=== PATIENT | male | born 1950 | race African-American/Black ===

== ENCOUNTER 2017-03-13 13:40 | Emergency (ER) | payer OTHER ==
[2017-03-13] MEDS ORDERED: ONDANSETRON HCL INJ/PF 4 MG/2 ML SDV IV ONE (13:47)
--- NOTE | 2017-03-13 13:52 | ER Document Report ---
ED General - General Stated Complaint: SYNCOPE Time Seen by Provider: 03/13/17 13:47 Mode of Arrival: Medic Information source: Patient Notes: This 66-year-old man with a history of hypertension, diabetes and lower disc disease is brought in by EMS after an episode of nausea, vomiting, syncope while shopping. Patient denies any chest pain or shortness of breath. He states he has been having some neck pain with movement for the past 4 days and has not been drinking that much fluids because of it. He states he did not eat much today and went out shopping and it was hot outside. He states he started to feel sweaty and nauseous at the counter at the store. He bent over vomited and states he fainted. Currently, the patient states she is feeling better. TRAVEL OUTSIDE OF THE [place] IN LAST 30 DAYS: No - HPI Onset: Just prior to arrival Onset/Duration: Sudden Quality of pain: No pain Severity: None Pain Level: Denies Associated symptoms: Other - On review of systems, the patient has been experiencing posterior neck pain for the past several days. denies: Chest pain , Fever, Shortness of breath Exacerbated by: Denies Relieved by: Denies Similar symptoms previously: No Recently seen / treated by doctor: No - Related Data Allergies/Adverse Reactions: No Known Allergies Allergy (Unverified 12/07/13 09:11) Past Medical History - General Information source: Patient - Social History Smoking Status: Never Smoker Cigarette use (# per day): No Chew tobacco use (# tins/day): No Frequency of alcohol use: None Drug Abuse: None Lives with: Family Family History: Reviewed & Not Pertinent Patient has suicidal ideation: No Patient has homicidal ideation: No - Past Medical History Cardiac Medical History: Reports: Hx Hypercholesterolemia, Hx Hypertension Pulmonary Medical History: Reports: None EENT Medical History: Reports: None Neurological Medical History: Reports: None Endocrine Medical History: Reports: Hx Diabetes Mellitus Type 2 Renal/ Medical History: Reports: None Malignancy Medical History: Reports None GI Medical History: Reports: None Musculoskeltal Medical History: Reports Hx Arthritis Skin Medical History: Reports None Psychiatric Medical History: Reports: None Traumatic Medical History: Reports: None Past Surgical History: Reports: Other - Lumbar spine surgery - Immunizations Hx Diphtheria, Pertussis, Tetanus Vaccination: No Review of Systems - Review of Systems Constitutional: denies: Chills, Fever EENT: No symptoms reported Cardiovascular: See HPI Respiratory: No symptoms reported Gastrointestinal: See HPI Genitourinary: No symptoms reported Male Genitourinary: No symptoms reported Musculoskeletal: No symptoms reported Skin: No symptoms reported Hematologic/Lymphatic: No symptoms reported Neurological/Psychological: No symptoms reported Physical Exam - Vital signs Vitals: Temp Pulse Resp BP Pulse Ox 98.2 F 65 16 156/93 H 100 03/13/17 13:45 03/13/17 13:45 03/13/17 13:45 03/13/17 13:45 03/13/17 13:45 Notes: Physical exam: GENERAL: 66-year-old man, alert and oriented 3, no acute distress HEAD: Atraumatic, normocephalic. EYES: Pupils equal round and reactive to light, extraocular movements intact, sclera anicteric, conjunctiva are normal. ENT: TMs normal, nares patent, oropharynx clear without exudates. Moist mucous membranes. NECK: Normal range of motion, supple without lymphadenopathy or JVD. LUNGS: Breath sounds clear to auscultation bilaterally and equal. No wheezes rales or rhonchi. HEART: Regular rate and rhythm without murmurs, rubs or gallops. ABDOMEN: Soft, normoactive bowel sounds. No tenderness to palpation. No guarding, no rebound. No masses appreciated. EXTREMITIES: Normal range of motion, no pitting or edema. No clubbing or cyanosis. NEUROLOGICAL: Cranial nerves II through XII grossly intact. Normal speech, normal gait. PSYCH: Normal mood, normal affect. SKIN: Warm, Dry, normal turgor, no rashes or lesions noted. Course - Vital Signs Vital signs: Temp Pulse Resp BP Pulse Ox 98.0 F 65 20 155/89 H 100 03/13/17 15:58 03/13/17 13:45 03/13/17 15:05 03/13/17 15:05 03/13/17 15:05 - Laboratory Result Diagrams: 03/13/17 13:55 03/13/17 13:55 Laboratory results interpreted by me: 03/13/17 13:55 Est GFR (Non-Af Amer) 59 L Glucose 174 H - Diagnostic Test Radiology reviewed: Image reviewed, Reports reviewed - No infiltrates - EKG Interpretation by Me Rate: Normal Rhythm: NSR - He shows normal sinus rhythm with a ventricular rate of 59, no acute ST-T wave changes Discharge - Discharge Clinical Impression: Heat exhaustion, Neck pain Condition: Stable Disposition: HOME, SELF-CARE Additional Instructions: Recommendations: As we discussed, rest, drink plenty of fluids. Take the Zofran if you have any nausea: 1 tablet every 4-6 hours per As far as for the neck pain: Take ibuprofen 400 mg every 6 hours for the next few days. Do not take it on an empty stomach Can try heating pads to the neck Follow-up with your doctor this week Recommend you have an outpatient MRI of the cervical spine and evaluation by a spine doctor See your primary care physician: Bring a copy of today's labs and x-ray reports with you. Referrals: NILAM KERR SEARCHLIGHT OPERATOR [Primary Care Provider] - Follow up tomorrow
[2017-03-13] MEDS: NORMAL SALINE 1000 ML 1,000 ML IV PRN ×2 (14:05→14:06)
[2017-03-13 14:13] LABS: ABSOLUTE EOSINOPHILS # (AUTO) 0.2 10^3/uL (0.0-0.6); ABSOLUTE LYMPHOCYTES (AUTO) 2.2 10^3/uL (0.5-4.7); ABSOLUTE NEUT (AUTO) 6.8 10^3/uL (1.7-8.2); BASOPHILS % (AUTO) 0.4 % (0-2); EOSINOPHILS % (AUTO) 1.6 % (0-6); HEMOGLOBIN 14.2 g/dL (13.5-17.0); HGB HCT DIFFERENCE -0.4; LYMPHOCYTES % (AUTO) 21.5 % (13-45); MEAN CORPUSCULAR HEMOGLOBIN 28.3 pg (27.0-33.4); MEAN CORPUSCULAR HGB CONC 33.1 g/dL (32.0-36.0); MEAN CORPUSCULAR VOLUME 86 fl (80-97); MONOCYTES % (AUTO) 9.5 % (3-13); RED BLOOD COUNT 5.02 10^6/uL (4.35-5.55); WHITE BLOOD COUNT 10.2 10^3/uL (4.0-10.5)
--- NOTE | 2017-03-13 14:18 | RADIOLOGY REPORT (SQ) ---
EXAM DESCRIPTION: CHEST SINGLE VIEW COMPLETED DATE/TIME: 03/13/2017 2:05 pm REASON FOR STUDY: vomiting COMPARISON: December 2013 EXAM PARAMETERS: NUMBER OF VIEWS: One view. TECHNIQUE: Single frontal radiographic view of the chest acquired. RADIATION DOSE: NA LIMITATIONS: None. FINDINGS: LUNGS AND PLEURA: No opacities, masses or pneumothorax. No pleural effusion. MEDIASTINUM AND HILAR STRUCTURES: No masses. Contour normal. HEART AND VASCULAR STRUCTURES: Heart normal in size. Normal vasculature. BONES: No acute findings. HARDWARE: None in the chest. OTHER: No other significant finding. IMPRESSION: NO ACUTE RADIOGRAPHIC FINDING IN THE CHEST. TECHNICAL DOCUMENTATION: JOB ID: [id number]
[2017-03-13 14:30] LABS: ALANINE AMINOTRANSFERASE 22 U/L (21-72); ALBUMIN 4.1 g/dL (3.5-5.0); ALKALINE PHOSPHATASE 90 U/L (38-126); ANION GAP 13 (5-19); ASPARTATE AMINO TRANSFERASE 17 U/L (17-59); BILIRUBIN,DIRECT 0.2 mg/dL (0.0-0.4); BILIRUBIN,TOTAL 1.3 mg/dL (0.2-1.3); BLOOD UREA NITROGEN 14 mg/dL (7-20); CALCIUM 9.6 mg/dL (8.4-10.2); CARBON DIOXIDE 24 mmol/L (22-30); CHLORIDE 103 mmol/L (98-107); CREATINE KINASE 141 U/L (55-170); CREATININE RESULT 1.24 mg/dL (0.52-1.25); GLUCOSE 174 mg/dL (75-110); POTASSIUM 4.1 mmol/L (3.6-5.0); SODIUM 139.7 mmol/L (137-145); TOTAL PROTEIN 7.8 g/dL (6.3-8.2)
[2017-03-13 14:42] LABS: CREATINE KINASE MB 0.62 ng/mL (<4.55)
[2017-03-13 14:43] LABS: TROPONIN I < 0.012 ng/mL
[2017-03-13] MEDS ORDERED: KETOROLAC TROMETHAMINE INJ/PF 30 MG/1 ML SDV IV ONE (15:10)
--- NOTE | 2017-03-13 15:30 | RADIOLOGY REPORT (SQ) ---
EXAM DESCRIPTION: CT CERVICAL SPINE WITHOUT COMPLETED DATE/TIME: 03/13/2017 2:41 pm REASON FOR STUDY: neck pain COMPARISON: None. TECHNIQUE: Axial images acquired through the cervical spine without intravenous contrast. Images re viewed with lung, soft tissue and bone windows. Reconstructed coronal and sagittal MPR images review ed. Images stored on PACS. All CT scanners at this facility use dose modulation, iterative reconstruction, and/or weight based d osing when appropriate to reduce radiation dose to as low as reasonably achievable (ALARA). [facility]: Dose Right [facility]: CareDose [facility]: Dose Right [facility]: Teradose 4D [facility]: [employer] RADIATION DOSE: Up-to-date CT equipment and radiation dose reduction techniques were employed. CTDIv ol: 22.8 mGy. DLP: 497 mGy-cm. mGy. LIMITATIONS: None. FINDINGS: ALIGNMENT: Anatomic. MINERALIZATION: Normal. VERTEBRAL BODIES: No fractures or dislocation. DISCS: Multilevel disc space narrowing with osteophytes. FACETS, LATERAL MASSES, POSTERIOR ELEMENTS: Facet arthropathy. No fractures. No dislocation. No ac yadiel findings. HARDWARE: None in the spine. VISUALIZED RIBS: No fractures. LUNG APICES AND SOFT TISSUES: No significant or acute findings. OTHER: No other significant finding. IMPRESSION: CHRONIC DEGENERATIVE CHANGES. NO ACUTE FINDINGS. TECHNICAL DOCUMENTATION: JOB ID: [id number] Quality ID # [id number]: Final reports with documentation of one or more dose reduction techniques (e.g., Au tomated exposure control, adjustment of the mA and/or kV according to patient size, use of iterative reconstruction technique) 2010 [employer]- All Rights Reserved
[2017-03-13 16:05] VITALS: BP 151/99
[2017-03-13] MEDS ORDERED: ONDANSETRON ODT 4 MG TAB (6 TAB/DSPK) PO PRN (16:05)
--- NOTE | 2017-03-13 18:01 | EKG REPORT ---
SEVERITY:- BORDERLINE ECG - SINUS RHYTHM BORDERLINE T ABNORMALITIES, INFERIOR LEADS : Confirmed by: Bhavik Little MD 13-Mar-2017 17:59:50
== END 2017-03-13 16:10 | disposition home or self-care (01) ==
LOC: ER 13:40
DX: T67.5XXA Heat exhaustion, unspecified, initial encounter (principal); R55 Syncope and collapse; R11.2 Nausea with vomiting, unspecified; X30.XXXA Exposure to excessive natural heat, initial encounter; Y93.89 Activity, other specified; M54.2 Cervicalgia; I10 Essential (primary) hypertension; E11.9 Type 2 diabetes mellitus without complications
CPT/HCPCS: 93005; 99285; 96361; 96374; 96375; 36415; 82553; 82550; 85025; 80053; 84484; 71010; 72125; 93010; J1885; J2405; J7030

== ENCOUNTER 2017-11-21 07:02 | Inpatient (IN) | payer MEDICARE, OTHER ==
[2017-11-21] MEDS ORDERED: NORMAL SALINE 1000 ML 1,000 ML IV ONE ×2 (07:12→09:55)
[2017-11-21 07:22] LABS: ABSOLUTE EOSINOPHILS # (AUTO) 0.4 10^3/uL (0.0-0.6); ABSOLUTE LYMPHOCYTES (AUTO) 3.5 10^3/uL (0.5-4.7); ABSOLUTE MONOCYTES (AUTO) 0.7 10^3/uL (0.1-1.4); ABSOLUTE NEUT (AUTO) 3.3 10^3/uL (1.7-8.2); BASOPHILS % (AUTO) 0.4 % (0-2); EOSINOPHILS % (AUTO) 4.7 % (0-6); HEMATOCRIT 37.8 % (37.9-51.0); HEMOGLOBIN 12.6 g/dL (13.5-17.0); LYMPHOCYTES % (AUTO) 43.7 % (13-45); MEAN CORPUSCULAR HEMOGLOBIN 28.3 pg (27.0-33.4); MEAN CORPUSCULAR HGB CONC 33.3 g/dL (32.0-36.0); MEAN CORPUSCULAR VOLUME 85 fl (80-97); MONOCYTES % (AUTO) 9.3 % (3-13); PLATELET COUNT 205 10^3/uL (150-450); RED BLOOD COUNT 4.45 10^6/uL (4.35-5.55); RED CELL DISTRIBUTION WIDTH 13.4 % (11.5-14.0); SEGMENTED NEUTROPHILS % (AUTO) 41.9 % (42-78); TOTAL CELLS COUNTED % (AUTO) 100 %
--- NOTE | 2017-11-21 07:29 | ER Document Report ---
ED GI Bleed / Rectal Pain - General Chief Complaint: Bloody Stools Stated Complaint: WEAKNESS Time Seen by Provider: 11/21/17 07:08 Notes: Patient is a 67-year-old male, past medical history hypertension, on baby aspirin, presents with 24 hours of painless bloody stools. He started to feel lightheaded and like he was about to pass out earlier today. He then called 911. Patient had a colonoscopy 8 months ago at [facility] and he says that did not show any signs of cancer. Patient denies syncope, fevers, abdominal pain, rectal pain, nausea, vomiting, hematuria, headache or back pain. TRAVEL OUTSIDE OF THE [place] IN LAST 30 DAYS: No - Related Data Allergies/Adverse Reactions: No Known Allergies Allergy (Verified 11/21/17 07:14) Past Medical History - General Information source: Patient - Social History Smoking Status: Never Smoker Chew tobacco use (# tins/day): No Frequency of alcohol use: None Drug Abuse: None Family History: Reviewed & Not Pertinent Patient has suicidal ideation: No Patient has homicidal ideation: No - Past Medical History Cardiac Medical History: Reports: Hx Hypercholesterolemia, Hx Hypertension Endocrine Medical History: Reports: Hx Diabetes Mellitus Type 2 Renal/ Medical History: Denies: Hx Peritoneal Dialysis Musculoskeltal Medical History: Reports Hx Arthritis Past Surgical History: Reports: Other - Lumbar spine surgery - Immunizations Hx Diphtheria, Pertussis, Tetanus Vaccination: No Review of Systems - Review of Systems Notes: REVIEW OF SYSTEMS: CONSTITUTIONAL: -fevers, -chills EENT: -eye pain, -difficulty swallowing, -nasal congestion CARDIOVASCULAR: -chest pain, -syncope. RESPIRATORY: -cough, -SOB GASTROINTESTINAL: -abdominal pain, -nausea, -vomiting, -diarrhea, +boody stool GENITOURINARY: -dysuria, -hematuria MUSCULOSKELETAL: -back pain, -neck pain SKIN: -rash or skin lesions. HEMATOLOGIC: -easy bruising or bleeding. LYMPHATIC: -swollen, enlarged glands. NEUROLOGICAL: -altered mental status or loss of consciousness, -headache, - neurologic symptoms PSYCHIATRIC: -anxiety, -depression. ALL OTHER SYSTEMS REVIEWED AND NEGATIVE. Physical Exam - Vital signs Vitals: Temp Pulse Resp BP Pulse Ox 97.3 F 59 L 16 123/75 100 11/21/17 07:05 11/21/17 07:05 11/21/17 07:05 11/21/17 07:05 11/21/17 07:05 - Notes Notes: PHYSICAL EXAMINATION: GENERAL: Well-appearing, well-nourished and in no acute distress. HEAD: Atraumatic, normocephalic. EYES: Pupils equal round and reactive to light, extraocular movements intact, sclera anicteric, conjunctiva are normal. ENT: nares patent, oropharynx clear without exudates. Moist mucous membranes. NECK: Normal range of motion, supple without lymphadenopathy LUNGS: Breath sounds clear to auscultation bilaterally and equal. No wheezes rales or rhonchi. HEART: Regular rate and rhythm without murmurs ABDOMEN: Soft, nontender, normoactive bowel sounds. No guarding, no rebound. No masses appreciated. RECTAL: Bloody brown stool, no tenderness or hemorrhoids. EXTREMITIES: Normal range of motion, no pitting or edema. No cyanosis. NEUROLOGICAL: Cranial nerves grossly intact. Normal speech, normal gait. Normal sensory and motor exams. PSYCH: Normal mood, normal affect. SKIN: Warm, Dry, normal turgor, no rashes or lesions noted. Course - Re-evaluation Re-evalutation: Patient with 24 hours painless rectal bleeding and near syncope that is worse when he stands. Patient becomes tachycardic and hypotensive when he is standing. First hemoglobin is 12.5 and patient provided IV fluids for his orthostatic hypotension. He is only on a baby aspirin daily. GI is not emissions inspector at [facility] today. 11/21/17 09:[address] Aguayo to see if patient could receive a colonoscopy at [facility] or if he recommends transfer. He says that he could perform colonoscopy to assess for reason for GI bleed. 11/21/17 10:29 Repeat hemoglobin is 11.6 after [address] Hutchison ( Hospitalist) and will admit patient to [facility] for Inpatient. - Vital Signs Vital signs: Temp Pulse Resp BP Pulse Ox 97.3 F 65 12 118/85 100 11/21/17 07:05 11/21/17 09:38 11/21/17 10:01 11/21/17 10:01 11/21/17 10:01 - Laboratory Result Diagrams: 11/21/17 09:50 11/21/17 06:38 Laboratory results interpreted by me: 11/21/17 11/21/17 11/21/17 06:38 06:38 09:50 RBC 4.01 L Hgb 12.6 L 11.5 L Hct 37.8 L 33.7 L Seg Neutrophils % 41.9 L BUN 29 H Glucose 193 H Discharge - Discharge Clinical Impression: Gastrointestinal bleeding, lower, Orthostatic hypotension, Near syncope Condition: Stable Disposition: ADMITTED INPATIENT Admitting Provider: Hospitalist - [facility] Admitted: Telemetry
[2017-11-21 07:36] LABS: ALANINE AMINOTRANSFERASE 25 U/L (21-72); ALBUMIN 3.6 g/dL (3.5-5.0); ALKALINE PHOSPHATASE 70 U/L (38-126); ANION GAP 12 (5-19); ASPARTATE AMINO TRANSFERASE 21 U/L (17-59); BILIRUBIN,DIRECT 0.3 mg/dL (0.0-0.4); BILIRUBIN,TOTAL 1.1 mg/dL (0.2-1.3); BLOOD UREA NITROGEN 29 mg/dL (7-20); CALCIUM 9.4 mg/dL (8.4-10.2); CARBON DIOXIDE 22 mmol/L (22-30); CHLORIDE 104 mmol/L (98-107); GLUCOSE 193 mg/dL (75-110); LIPASE 183.4 U/L (23-300); TOTAL PROTEIN 6.5 g/dL (6.3-8.2)
[2017-11-21 10:03] LABS: ABSOLUTE EOSINOPHILS # (AUTO) 0.1 10^3/uL (0.0-0.6); ABSOLUTE LYMPHOCYTES (AUTO) 1.5 10^3/uL (0.5-4.7); ABSOLUTE MONOCYTES (AUTO) 0.8 10^3/uL (0.1-1.4); ABSOLUTE NEUT (AUTO) 7.4 10^3/uL (1.7-8.2); BASOPHILS % (AUTO) 0.3 % (0-2); EOSINOPHILS % (AUTO) 0.6 % (0-6); HEMATOCRIT 33.7 % (37.9-51.0); HEMOGLOBIN 11.5 g/dL (13.5-17.0); MEAN CORPUSCULAR HEMOGLOBIN 28.6 pg (27.0-33.4); MEAN CORPUSCULAR VOLUME 84 fl (80-97); MONOCYTES % (AUTO) 7.9 % (3-13); PLATELET COUNT 184 10^3/uL (150-450); RED BLOOD COUNT 4.01 10^6/uL (4.35-5.55); RED CELL DISTRIBUTION WIDTH 13.5 % (11.5-14.0); SEGMENTED NEUTROPHILS % (AUTO) 76.2 % (42-78); TOTAL CELLS COUNTED % (AUTO) 100 %; WHITE BLOOD COUNT 9.7 10^3/uL (4.0-10.5)
[2017-11-21] MEDS ORDERED: DEXTROSE 50%-WATER 25 GM/50 ML DISP.SYRIN IV PRN ×2 (11:11)
[2017-11-21] MEDS ORDERED: ONDANSETRON HCL INJ/PF 4 MG/2 ML SDV IV PRN (11:11)
[2017-11-21] MEDS ORDERED: DEXTROSE 40% GEL 15 GM TUBE PO PRN ×2 (11:11)
[2017-11-21] MEDS ORDERED: IPRATROPIUM/ALBUTEROL 0.5-2.5 MG/3 ML AMPUL NEB PRN (11:11)
[2017-11-21] MEDS ORDERED: GLUCAGON,HUMAN RECOMB 1 MG INJ SUBCUT PRN (11:11)
--- NOTE | 2017-11-21 11:36 | PDOC CONSULTATION ---
Consultation Consult Date: 11/21/17 Attending physician:: PHILLIP BEARD Consult reason:: Gastrointestinal hemorrhage History of Present Illness Admission Date/PCP: 11/21/17 11:08 History of Present Illness: ANTHONY BENNETT is a 67 year old male The patient is a 67-year-old Afro-Maldivian male, poor historian, who comes to the emergency department via ground rescue complaining of fainting. Apparently the patient passed out at home while having a bowel movement, and had blood in his stool with blood landing on his feet as well. He is not accompanied by anyone at the time of this interview. He came to the emergency department was evaluated, found to be hemodynamically stable, and not actively bleeding. According to the patient he has never had a GI bleed before. He reportedly underwent lower endoscopy approximately 5 months ago [facility] with negative findings. We are obtaining those medical records. She denies history of anemia, history of trauma. Past history of peptic ulcer disease although he does take aspirin. On further questioning the patient has been feeling poorly for approximately 2 years. He has had lethargy, decreased p.o. intake, and approximately 10 pound weight loss, unintentional. Appetite also poor. Approximately 3 months ago he started to have random episodes of left upper quadrant pain, associated subsequently with nausea but no che vomiting. He would massage abdominal wall and feel better. Bowel movements have been loose muddy like and then the last several days with blood. Ring straining to evacuate his stool. He is unaware of the of colorectal cancer in the family. According to the patient he has not had a gastric neurologic workup beyond the colonoscopy. Past Medical History Cardiac Medical History: Reports: Hyperlipidema, Hypertension, Other - Diabetes mellitus, vitamin D deficiency history of dehydration Endocrine Medical History: Reports: Diabetes Mellitus Type 2 Musculoskeltal Medical History: Reports: Arthritis Past Surgical History Past Surgical History: Reports: Other - Lumbar spine surgery Social History Information Source: Patient Smoking Status: Never Smoker Frequency of Alcohol Use: None Hx Recreational Drug Use: No Hx Prescription Drug Abuse: No Family History Family History: Reviewed & Not Pertinent Parental Family History Reviewed: Yes Children Family History Reviewed: Yes Sibling(s) Family History Reviewed.: Yes Medication/Allergy Home Medications: Aspirin 81 mg PO DAILY PRN 12/07/13 Cholecalciferol (Vitamin D3) [Vitamin D] 1,000 unit PO DAILY 12/07/13 Ondansetron HCl [Zofran 4 mg Tablet] 1 - 2 tab PO Q4H PRN #10 tablet 12/07/13 Allergies/Adverse Reactions: No Known Allergies Allergy (Verified 11/21/17 07:14) Physical Exam Vital Signs: Temp Pulse Resp BP Pulse Ox 97.3 F 65 12 118/85 100 11/21/17 07:05 11/21/17 09:38 11/21/17 10:01 11/21/17 10:01 11/21/17 10:01 General appearance: PRESENT: no acute distress Head exam: PRESENT: normocephalic Eye exam: PRESENT: EOMI Ear exam: PRESENT: normal external ear exam Neck exam: PRESENT: full ROM Respiratory exam: PRESENT: clear to auscultation kendra Cardiovascular exam: PRESENT: RRR Pulses: PRESENT: normal carotid pulses, normal radial pulses, +2 pedal pulses bilateral GI/Abdominal exam: PRESENT: other - The abdomen is soft, no peritoneal signs no rigidity no hernias. Minimal epigastric tenderness Rectal exam: PRESENT: deferred Psychiatric exam: PRESENT: appropriate affect Focused psych exam: PRESENT: other - Appropriate alert and oriented 4 Assessment & Plan - Diagnosis (1) Gastrointestinal bleeding, lower Is this a current diagnosis for this admission?: Yes Plan: Impression: Acute GI bleed, hemodynamically stable, with syncope and collapse; suspect acute superimposed on chronic Recommendations: 1. Agree with n.p.o., IV fluids, adequate check 2. We will set patient up for upper and lower endoscopy later today or tomorrow after bowel prep 3. Obtain medical records from previous colonoscopy from [facility]. (2) Weight loss Is this a current diagnosis for this admission?: Yes (3) Near syncope Is this a current diagnosis for this admission?: Yes - Time Time Spent: 50 to 70 Minutes Smoking Cessation Education: over 10 minutes Anticipated discharge: Home
[2017-11-21] MEDS ORDERED: PANTOPRAZOLE SODIUM 40 MG VIAL IV ONE (12:30)
[2017-11-21] MEDS ORDERED: PEG 3350/NA SULF,BICARB,CL/KCL 4000 ML PO ONE (12:30)
[2017-11-21] MEDS: NORMAL SALINE 1000 ML 1,000 ML IV PRN (13:23)
[2017-11-21] MEDS ORDERED: NALOXONE HCL INJ/PF 0.4 MG/1 ML SDV ONE (17:51)
[2017-11-21] MEDS ORDERED: GLYCOPYRROLATE INJ 0.4 MG/2 ML VIAL ONE (17:51)
[2017-11-21] MEDS ORDERED: ONDANSETRON HCL INJ/PF 4 MG/2 ML SDV ONE (17:51)
[2017-11-21] MEDS ORDERED: GLUCAGON,HUMAN RECOMB 1 MG INJ ONE (17:52)
[2017-11-21] MEDS ORDERED: FLUMAZENIL INJ 0.5 MG/5 ML VIAL ONE (17:52)
[2017-11-21] MEDS ORDERED: FENTANYL CITRATE INJ/PF 100 MCG/2 ML AMPUL ONE (17:52)
[2017-11-21] MEDS ORDERED: EPINEPHRINE INJ 1 MG/10 ML DISP.SYRIN ONE (17:52)
--- NOTE | 2017-11-21 17:55 | PDOC H&P ---
History of Present Illness Admission Date/PCP: 11/21/17 11:08 Patient complains of: Abdominal pain,nausea and rectal bleeding History of Present Illness: ANTHONY BENNETT is a 67 year old male It appears patient also complained of about a 10 pound unintentional weight loss as well as anorexia and has been feeling weak for about 2 years. He has also had associated abdominal pain. He is not on any anticoagulant. The first noted his bowel movements to be brown but has since turned bloody. He complained of passing out her home while having a bowel movement. He noted there was blood in his stool. Was noted to be dizzy on attempts to stand him up and ambulating. He really denies any specific abdominal pain although said his upper abdomen at been somewhat rough and gets better sometimes when he rubs on it Patient denies any hematemesis, melena, history of peptic ulcer or use of any anticoagulant or anti-platelet Past Medical History Cardiac Medical History: Reports: Hyperlipidema, Hypertension Pulmonary Medical History: Reports: Intubation Endocrine Medical History: Reports: Diabetes Mellitus Type 2 Musculoskeltal Medical History: Reports: Arthritis Past Surgical History Past Surgical History: Reports: Other - Lumbar spine surgery Social History Information Source: Patient Lives with: Family Smoking Status: Never Smoker Frequency of Alcohol Use: Rare Hx Recreational Drug Use: No - Advance Directive Resuscitation Status: Full Code Family History Family History: Reviewed & Not Pertinent Parental Family History Reviewed: Yes Children Family History Reviewed: Yes Sibling(s) Family History Reviewed.: Yes Medication/Allergy Home Medications: Amlodipine Besylate [Norvasc 5 mg Tablet] 5 mg PO DAILY 11/21/17 Aspirin [Aspirin EC] 81 mg PO DAILY 11/21/17 Cholecalciferol (Vitamin D3) [Vitamin D3 1000 Unit Tablet] 1,000 unit PO DAILY 11/21/17 Metformin HCl [Metformin HCl ER] 500 mg PO DAILY 11/21/17 Tamsulosin HCl [Flomax 0.4 mg Cap.sr] 0.4 mg PO DAILY 11/21/17 Allergies/Adverse Reactions: No Known Allergies Allergy (Verified 11/21/17 07:14) Review of Systems All systems: reviewed and no additional remarkable complaints except as stated Gastrointestinal: PRESENT: hematochezia. ABSENT: melena Hematologic/Lymphatic: ABSENT: easy bleeding, lymphadenopathy Physical Exam Vital Signs: Temp Pulse Resp BP Pulse Ox 97.3 F 65 12 118/85 100 11/21/17 07:05 11/21/17 09:38 11/21/17 10:01 11/21/17 10:01 11/21/17 10:01 General appearance: PRESENT: no acute distress, well-developed Head exam: PRESENT: atraumatic Eye exam: PRESENT: conjunctiva pink, EOMI, PERRLA. ABSENT: scleral icterus Ear exam: PRESENT: normal external ear exam Neck exam: ABSENT: carotid bruit, JVD, lymphadenopathy, thyromegaly Respiratory exam: PRESENT: clear to auscultation kendra. ABSENT: rales, rhonchi, wheezes Cardiovascular exam: PRESENT: RRR. ABSENT: diastolic murmur, rubs, systolic murmur Pulses: PRESENT: normal dorsalis pedis pul GI/Abdominal exam: PRESENT: normal bowel sounds, soft. ABSENT: distended, guarding, mass, organolmegaly, rebound, tenderness Rectal exam: PRESENT: black stool, heme (+) stool Extremities exam: PRESENT: full ROM. ABSENT: calf tenderness, clubbing, pedal edema Musculoskeletal exam: PRESENT: ambulatory Neurological exam: PRESENT: alert, awake, oriented to person, oriented to place , oriented to time, oriented to situation, CN II-XII grossly intact. ABSENT: motor sensory deficit Assessment & Plan - Diagnosis (1) Gastrointestinal bleeding, lower Is this a current diagnosis for this admission?: Yes Plan: Etiology not quite clear. he had a colonoscopy few months ago apparently negative. He is scheduled for EGD this pm (2) Near syncope Is this a current diagnosis for this admission?: Yes Plan: Secondary to GI bleeding. He will be fluid resuscitated and if needed he will be given some blood (3) Orthostatic hypotension Is this a current diagnosis for this admission?: Yes Plan: Due to above hopefully this should subside with rehydration (4) Anemia Qualifiers: Anemia type: other cause Other causes of anemia: acute posthemorrhagic Qualified Code(s): D62 - Acute posthemorrhagic anemia Is this a current diagnosis for this admission?: Yes Plan: Currently mild but will monitor this closely and transfuse if needed at this point he does not need any transfusion General surgery has been consulted for an endoscopy - Time Time Spent: 30 to 50 Minutes Medications reviewed and adjusted accordingly: Yes Anticipated discharge: Home - Inpatient Certification Based on my medical assessment, after consideration of the patient's comorbidities, presenting symptoms, or acuity I expect that the services needed warrant INPATIENT care.: Yes Medical Necessity: Need Close Monitoring Due to Risk of Patient Decompensation, Risk of Complication if Not Cared For in Hospital - Plan Summary Plan Summary: Mechanical prophylaxis will be used for prevention of DVT due to the active bleeding
[2017-11-21] MEDS ORDERED: BENZOCAINE 20% AEROSOL SPRAY 60 GM ONE (18:27)
[2017-11-21] MEDS: MIDAZOLAM 2 MG/2 ML INJ ONE ×5 (19:02→19:38)
--- NOTE | 2017-11-21 20:59 | Operative Report ---
Operative Report DATE OF SURGERY: 11/21/17 PREOPERATIVE DIAGNOSIS: 1. Acute GI bleed. 2. History of diverticulosis POSTOPERATIVE DIAGNOSIS: 1. Mild gastritis, mild duodenitis; no evidence of upper GI bleed. 2. Scattered diverticulosis of the colon, mostly sigmoid. 3. No active colonic bleeding however evidence of recent bleeding with clots likely from colonic source OPERATION: 1. Upper endoscopy with antral biopsy for CLOtest. 2. Complete colonoscopy photodocumentation SURGEON: ANNEMARIE SWANSON ANESTHESIA: Moderate Sedation TISSUE REMOVED OR ALTERED: None COMPLICATIONS: None ESTIMATED BLOOD LOSS: No active bleeding INTRAOPERATIVE FINDINGS: See below PROCEDURE: [employer] on the floor to the endoscopy suite where conscious sedation was induced. Operate equipment, monitoring devices established for upper endoscopy Surgical timeout conducted The flexible adult upper endoscope was advanced through the oropharynx, the hypopharynx, and the esophagus through the stomach and into the duodenum. This is well tolerated by the patient. The duodenum first and second portions was scope. There was no evidence of active bleeding or clots. There was no evidence of tumor stricture or polyp. There was mild duodenitis. No biopsy performed Stomach was examined thoroughly. The scope was retroflexed in the stomach and there was a very small hiatal hernia. There was mild diffuse antritis but no active bleeding, clots or ulcer seen. A Single biopsy the gastric antrum was performed, and sent for JANELLE and histology. The stomach was decompressed of air and fluid and the scope withdrawn. The esophagus was scope prograde and retrograde, and no evidence of varix, tumor , polyps stricture or bleeding. In summary there was no evidence of upper endoscopic GI bleeding source identified. After the mask appears performed, equipment was rearranged, and colonoscopy performed. A rectal exam was performed. The posterior surface of prostate gland was enlarged. Sphincter tone was excellent. The pediatric colonoscope was now advanced to the anorectal canal all the way to cecum. There was no evidence of residual stool. There was a moderate to significant amount of liquid blood, dilute, and some semisolid clot. There was no active bleeding. The ileocecal valve was visualized. The scope was brought back through the colon in a anterograde fashion; there was scattered diverticulosis of the right and left colon but mostly the sigmoid colon although total number of diverticuli was less than 15. Again no evidence of active bleeding. No evidence of tumor stricture or polyp. We could not appreciate any AVMs. The mucosa looked appropriately perfused Was withdrawn the patient's anus. He tolerated procedure well. Recommendations: 1. Continue to monitor, with stool evaluation. 2. Patient can be started on a clear liquid diet and advanced as tolerated. 3. No indication for further surgical intervention at this time. Further evaluation patient's weight loss, lethargy may be required.
[2017-11-21 21:27] LABS: HEMATOCRIT 30.7 % (37.9-51.0); HEMOGLOBIN 10.5 g/dL (13.5-17.0); MEAN CORPUSCULAR HGB CONC 34.2 g/dL (32.0-36.0); MEAN CORPUSCULAR VOLUME 85 fl (80-97); PLATELET COUNT 152 10^3/uL (150-450); RED BLOOD COUNT 3.63 10^6/uL (4.35-5.55); RED CELL DISTRIBUTION WIDTH 13.4 % (11.5-14.0)
[2017-11-21] MEDS: PANTOPRAZOLE SODIUM 40 MG VIAL IV SCH (22:18)
[2017-11-22 05:28] LABS: HEMATOCRIT 29.9 % (37.9-51.0); MEAN CORPUSCULAR HEMOGLOBIN 28.4 pg (27.0-33.4); MEAN CORPUSCULAR HGB CONC 33.5 g/dL (32.0-36.0); MEAN CORPUSCULAR VOLUME 85 fl (80-97); PLATELET COUNT 151 10^3/uL (150-450); RED BLOOD COUNT 3.53 10^6/uL (4.35-5.55); RED CELL DISTRIBUTION WIDTH 13.7 % (11.5-14.0)
[2017-11-22 05:53] LABS: ANION GAP 7 (5-19); BLOOD UREA NITROGEN 16 mg/dL (7-20); CALCIUM 8.9 mg/dL (8.4-10.2); CARBON DIOXIDE 25 mmol/L (22-30); CHLORIDE 109 mmol/L (98-107); GLUCOSE 114 mg/dL (75-110); POTASSIUM 3.8 mmol/L (3.6-5.0); SODIUM 140.8 mmol/L (137-145)
[2017-11-22] MEDS: NORMAL SALINE 1000 ML 1,000 ML IV PRN ×2 (07:39→14:45)
[2017-11-22] MEDS: PANTOPRAZOLE SODIUM 40 MG VIAL IV SCH ×2 (09:06→21:35)
--- NOTE | 2017-11-22 11:02 | PDOC PROGRESS REPORT ---
Subjective Progress Note for:: 11/22/17 Subjective:: Patient had a colonoscopy as well as upper endoscopy done which revealed mild gastritis, mild duodenitis but no evidence of upper GI bleeding. Colonoscopy revealed scattered diverticulosis of the colon but no active colonic bleeding however there was evidence of recent bleeding with clots likely from colonic source. Patient continues to deny any pain. He has not had a bowel movement yet since yesterday. Is tolerating his diet okay. Reason For Visit: ACUTE GI BLEED Physical Exam Vital Signs: Temp Pulse Resp BP Pulse Ox 97.9 F 73 20 126/73 H 98 11/22/17 08:00 11/22/17 08:00 11/22/17 08:00 11/22/17 08:00 11/22/17 08:00 Intake & Output 11/21/17 11/22/17 11/23/17 06:59 06:59 06:59 Intake Total 2863 Balance 2863 Weight 100.6 kg General appearance: PRESENT: no acute distress, well-developed Head exam: PRESENT: atraumatic Ear exam: PRESENT: normal external ear exam Neck exam: ABSENT: carotid bruit, JVD, lymphadenopathy, thyromegaly Respiratory exam: PRESENT: clear to auscultation kendra. ABSENT: rales, rhonchi, wheezes Cardiovascular exam: PRESENT: RRR. ABSENT: diastolic murmur, rubs, systolic murmur GI/Abdominal exam: PRESENT: normal bowel sounds, soft, tenderness - Mild fatigue. ABSENT: distended, guarding, mass, organolmegaly, rebound Rectal exam: PRESENT: deferred Extremities exam: PRESENT: full ROM. ABSENT: calf tenderness, clubbing, pedal edema Musculoskeletal exam: PRESENT: ambulatory Neurological exam: PRESENT: alert, awake, oriented to person, oriented to place , oriented to time, oriented to situation, CN II-XII grossly intact. ABSENT: motor sensory deficit Psychiatric exam: PRESENT: appropriate affect, normal mood. ABSENT: homicidal ideation, suicidal ideation Results Laboratory Results: 11/22/17 04:34 11/22/17 04:34 11/21/17 11/22/17 11/22/17 21:17 04:34 04:34 WBC 7.0 6.0 RBC 3.63 L 3.53 L Hgb 10.5 L 10.0 L Hct 30.7 L 29.9 L MCV 85 85 MCH 29.0 28.4 MCHC 34.2 33.5 RDW 13.4 13.7 Plt Count 152 151 Sodium 140.8 Potassium 3.8 Chloride 109 H Carbon Dioxide 25 Anion Gap 7 BUN 16 Creatinine 1.12 Est GFR ( Amer) > 60 Est GFR (Non-Af Amer) > 60 Glucose 114 H Calcium 8.9 Magnesium 2.1 Assessment & Plan - Diagnosis (1) Gastrointestinal bleeding, lower Is this a current diagnosis for this admission?: Yes Plan: Likely secondary to diverticulosis. No active bleeding is same but he does have fresh blood in his colon. Go ahead and order a CT scan of the abdomen and pelvis to rule out any other associated underlying etiology He has had no need for any transfusion as his hemoglobin has been stable and will continue to monitor (2) Near syncope Is this a current diagnosis for this admission?: Yes Plan: Secondary to GI bleeding. Resolved (3) Orthostatic hypotension Is this a current diagnosis for this admission?: Yes Plan: Secondary to acute blood loss. Resolved (4) Anemia Qualifiers: Anemia type: other cause Other causes of anemia: acute posthemorrhagic Qualified Code(s): D62 - Acute posthemorrhagic anemia Is this a current diagnosis for this admission?: Yes Plan: Hemoglobin has been relatively stable with a 2 point drop and no hemodynamic compromise. We will monitor patient overnight for less than 24 hours to ensure stability and he likely can be discharged home stable in a.m. - Time Time Spent with patient: 15-24 minutes Medications reviewed and adjusted accordingly: Yes Anticipated discharge: Home Within: within 24 hours - Inpatient Certification Based on my medical assessment, after consideration of the patient's comorbidities, presenting symptoms, or acuity I expect that the services needed warrant INPATIENT care.: Yes Medical Necessity: Need Close Monitoring Due to Risk of Patient Decompensation, Risk of Complication if Not Cared For in Hospital
[2017-11-22 14:21] LABS: ABSOLUTE BASOPHILS # (AUTO) 0.1 10^3/uL (0.0-0.2); ABSOLUTE EOSINOPHILS # (AUTO) 0.2 10^3/uL (0.0-0.6); ABSOLUTE LYMPHOCYTES (AUTO) 2.1 10^3/uL (0.5-4.7); ABSOLUTE MONOCYTES (AUTO) 0.5 10^3/uL (0.1-1.4); ABSOLUTE NEUT (AUTO) 2.3 10^3/uL (1.7-8.2); EOSINOPHILS % (AUTO) 4.2 % (0-6); HEMATOCRIT 31.3 % (37.9-51.0); HEMOGLOBIN 10.8 g/dL (13.5-17.0); LYMPHOCYTES % (AUTO) 40.2 % (13-45); MEAN CORPUSCULAR HEMOGLOBIN 29.2 pg (27.0-33.4); MEAN CORPUSCULAR HGB CONC 34.5 g/dL (32.0-36.0); MEAN CORPUSCULAR VOLUME 85 fl (80-97); MONOCYTES % (AUTO) 9.5 % (3-13); PLATELET COUNT 170 10^3/uL (150-450); RED CELL DISTRIBUTION WIDTH 13.6 % (11.5-14.0); SEGMENTED NEUTROPHILS % (AUTO) 45.1 % (42-78); TOTAL CELLS COUNTED % (AUTO) 100 %; WHITE BLOOD COUNT 5.1 10^3/uL (4.0-10.5)
--- NOTE | 2017-11-22 14:36 | RADIOLOGY REPORT (SQ) ---
EXAM DESCRIPTION: CT ABD/PELVIS WITH IV ORAL COMPLETED DATE/TIME: 11/22/2017 2:19 pm REASON FOR STUDY: GI bleeding, weight loss COMPARISON: None. TECHNIQUE: CT scan of the abdomen and pelvis performed using helical scanning technique with dynamic intravenous contrast injection and oral contrast. Images reviewed with lung, soft tissue, and bone w indows. Reconstructed coronal and sagittal MPR images reviewed. Delayed images for evaluation of the urinary system also acquired. All images stored on PACS. All CT scanners at this facility use dose modulation, iterative reconstruction, and/or weight based d osing when appropriate to reduce radiation dose to as low as reasonably achievable (ALARA). [facility]: Dose Right [facility]: CareDose [facility]: Dose Right [facility]: Teradose 4D [facility]: [employer] CONTRAST TYPE AND DOSE: contrast/concentration: Isovue 370.00 mg/ml; Total Contrast Delivered: 100.0 ml; Total Saline Delivered: 72.0 ml RENAL FUNCTION: Creatinine 1.12 RADIATION DOSE: CT Rad equipment meets quality standard of care and radiation dose reduction techniq ues were employed. CTDIvol: 9.7 - 11.3 mGy. DLP: 1049 mGy-cm.. LIMITATIONS: None. FINDINGS: LOWER CHEST: No significant findings. No nodules or infiltrates. LIVER: Normal size. No masses. No dilated ducts. SPLEEN: Normal size. No focal lesions. PANCREAS: No masses. No significant calcifications. No adjacent inflammation or peripancreatic fluid collections. Pancreatic duct not dilated. GALLBLADDER: No identified stones by CT criteria. No inflammatory changes to suggest cholecystitis. ADRENAL GLANDS: No significant masses or asymmetry. RIGHT KIDNEY AND URETER: No solid masses. No significant calcifications. No hydronephrosis or hyd roureter. LEFT KIDNEY AND URETER: No solid masses. No significant calcifications. No hydronephrosis or hydr oureter. AORTA AND VESSELS: No aneurysm. No dissection. Renal arteries, SMA, celiac without stenosis. RETROPERITONEUM: No retroperitoneal adenopathy, hemorrhage or masses. BOWEL AND PERITONEAL CAVITY: No masses or inflammatory changes. No free fluid or peritoneal masses. APPENDIX: Not identified PELVIS: No mass. No free fluid. There is some prominence of the prostate gland with a prostatic imp ression on the bladder base. ABDOMINAL WALL: No masses. Small umbilical hernia is identified containing fat BONES: No significant or acute findings. OTHER: No other significant finding. IMPRESSION: NO SIGNIFICANT OR ACUTE FINDING IN THE ABDOMEN OR PELVIS ON CT SCAN WITH IV CONTRAST. TECHNICAL DOCUMENTATION: JOB ID: [id number] Quality ID # [id number]: Final reports with documentation of one or more dose reduction techniques (e.g., Au tomated exposure control, adjustment of the mA and/or kV according to patient size, use of iterative reconstruction technique) 2010 [employer]- All Rights Reserved Reading location - IP/workstation name: [email or web address]
[2017-11-23 05:37] LABS: HEMATOCRIT 28.1 % (37.9-51.0); HEMOGLOBIN 9.5 g/dL (13.5-17.0); MEAN CORPUSCULAR HEMOGLOBIN 28.5 pg (27.0-33.4); MEAN CORPUSCULAR HGB CONC 33.7 g/dL (32.0-36.0); MEAN CORPUSCULAR VOLUME 85 fl (80-97); PLATELET COUNT 156 10^3/uL (150-450); RED BLOOD COUNT 3.32 10^6/uL (4.35-5.55); RED CELL DISTRIBUTION WIDTH 13.3 % (11.5-14.0); WHITE BLOOD COUNT 5.4 10^3/uL (4.0-10.5)
[2017-11-23 13:01] VITALS: BP 134/82
--- NOTE | 2017-11-23 15:23 | PDOC DISCHARGE SUMMARY ---
General - Admit/Disc Date/PCP Admission Date/Primary Care Provider: 11/21/17 11:08 Discharge Date: 11/23/17 - Discharge Diagnosis (1) Diverticulosis Is this a current diagnosis for this admission?: Yes Summary: Noted on colonoscopy. Source of Lower GI bleed as there is no other obvious source. Clinically feeling much better. No bleeding issues since admission. H&H stable - CT AP negative - Colonoscopy biopsies are pending Plan - Script given for PO protonix daily - Counseled about diet (discussed that evidence behind avoiding seeds and nuts is weak) - OK to increase fiber intake (2) Gastrointestinal bleeding, lower Is this a current diagnosis for this admission?: Yes Summary: Resolved, H&H stable (3) Anemia Is this a current diagnosis for this admission?: Yes Summary: This is an acute on chronic issue - Unfortunately iron studies were not ordered. However MCV is 85. - Script given for Ferrous Sulfate 325mg BID, common side effects reviewed - Repeat H&H in 4-6 week to assess response (4) Diabetes mellitus Is this a current diagnosis for this admission?: Yes Summary: Advised to hold metformin for [address] scan since he received contrast - Resume on Saturday 11/25 - Continue other home DM medications - Additional Information Resuscitation Status: Full Code Discharge Activity: Activity As Tolerated Prescriptions: Ferrous Sulfate 325 mg PO DAILY #60 tablet. Pantoprazole Sodium [Protonix] 40 mg PO DAILY #30 tablet. Home Medications: Amlodipine Besylate [Norvasc 5 mg Tablet] 5 mg PO DAILY 11/21/17 Aspirin [Aspirin EC] 81 mg PO DAILY 11/21/17 Cholecalciferol (Vitamin D3) [Vitamin D3 1000 Unit Tablet] 1,000 unit PO DAILY 11/21/17 Tamsulosin HCl [Flomax 0.4 mg Cap.sr] 0.4 mg PO DAILY 11/21/17 Ferrous Sulfate 325 mg PO DAILY #60 tablet. 11/23/17 Metformin HCl [Metformin HCl ER] 500 mg PO DAILY #30 11/23/17 Pantoprazole Sodium [Protonix] 40 mg PO DAILY #30 tablet. 11/23/17 History of Present Illness Patient complains of: weight loss, GI bleed History of Present Illness: ANTHONY BENNETT is a 67 year old male 10 pound unintentional weight loss as well as anorexia and has been feeling weak for about 2 years. He has also had associated abdominal pain. He is not on any anticoagulant. The first noted his bowel movements to be brown but has since turned bloody. He complained of passing out her home while having a bowel movement. He noted there was blood in his stool. Was noted to be dizzy on attempts to stand him up and ambulating. He really denies any specific abdominal pain although said his upper abdomen at been somewhat rough and gets better sometimes when he rubs on it. Patient denies any hematemesis, melena, history of peptic ulcer or use of any anticoagulant or anti-platelet Physical Exam Vital Signs: Temp Pulse Resp BP Pulse Ox 97.9 F 71 18 134/82 H 99 11/23/17 13:00 11/23/17 13:00 11/23/17 13:00 11/23/17 13:00 11/23/17 13:00 Intake & Output 11/22/17 11/23/17 11/24/17 06:59 06:59 06:59 Intake Total 2863 2595 Balance 2863 2595 Weight 100.6 kg 104 kg General appearance: PRESENT: no acute distress, cooperative, well-developed, well-nourished Head exam: PRESENT: normocephalic Mouth exam: PRESENT: moist Respiratory exam: PRESENT: unlabored Cardiovascular exam: PRESENT: +S1, +S2. ABSENT: systolic murmur GI/Abdominal exam: PRESENT: soft. ABSENT: distended, tenderness Rectal exam: PRESENT: deferred Neurological exam: PRESENT: alert, awake, CN II-XII grossly intact Psychiatric exam: PRESENT: appropriate affect Results Laboratory Results: 11/23/17 04:41 11/22/17 04:34 11/23/17 04:41 WBC 5.4 RBC 3.32 L Hgb 9.5 L Hct 28.1 L MCV 85 MCH 28.5 MCHC 33.7 RDW 13.3 Plt Count 156 Impressions: Abdomen/Pelvis CT 11/22/17 00:00 IMPRESSION: NO SIGNIFICANT OR ACUTE FINDING IN THE ABDOMEN OR PELVIS ON CT SCAN WITH IV CONTRAST. Qualifiers - * PATEINT BEING DISCHARGED WITH ANY OF THE FOLLOWING DIAGNOSIS?: No
[2017-11-24] MEDS ORDERED: LANSOPRAZOLE 30 MG TAB.RAP.DR PO SCH (06:00)
== END 2017-11-23 13:48 | disposition home or self-care (01) | DRG 378 ==
LOC: ER 07:02 → EH 11:08 → 3W 15:30
PROVIDERS: ADMIT Family Medicine; ATTEND Family Medicine
PROC: 3E0F73Z Introduction of Anti-inflammatory into Respiratory Tract, Via Natural or Artificial Opening (ICD-10-PCS; 2017-11-21)
PROC: 0DB68ZX Excision of Stomach, Via Natural or Artificial Opening Endoscopic, Diagnostic (ICD-10-PCS; principal; 2017-11-21 18:00)
PROC: 0DJD8ZZ Inspection of Lower Intestinal Tract, Via Natural or Artificial Opening Endoscopic (ICD-10-PCS; 2017-11-21 18:00)
DX: K57.31 Diverticulosis of large intestine without perforation or abscess with bleeding (principal); D62 Acute posthemorrhagic anemia; E11.9 Type 2 diabetes mellitus without complications; E78.00 Pure hypercholesterolemia, unspecified; E55.9 Vitamin D deficiency, unspecified; M19.90 Unspecified osteoarthritis, unspecified site; R63.0 Anorexia; R63.4 Abnormal weight loss; I95.1 Orthostatic hypotension; K29.80 Duodenitis without bleeding; I10 Essential (primary) hypertension; K29.50 Unspecified chronic gastritis without bleeding; Z68.28 Body mass index [BMI] 28.0-28.9, adult; Z79.899 Other long term (current) drug therapy; Z79.82 Long term (current) use of aspirin
CPT/HCPCS: 36415; 43239; 45378; 74177; 80048; 80053; 82272; 82962; 83690; 83735; 85025; 85027; 86850; 86900; 86901; 88305; 88342; 96360; 96361; 99285; J0171; J1610; J2250; J2310; J2405; J3010; J3490; J7030; S0164